=== PATIENT | male | born 1975 | race Caucasian/White ===

== ENCOUNTER 2017-11-11 20:18 | Emergency (ER) | payer SELFPAY | END 2017-11-11 20:47 | disposition home or self-care (01) | LOC: MADERS 20:18 | DX: M75.92 Shoulder lesion, unspecified, left shoulder (principal); G43.909 Migraine, unspecified, not intractable, without status migrainosus; F17.220 Nicotine dependence, chewing tobacco, uncomplicated | CPT/HCPCS: 99283 ==

== ENCOUNTER 2018-07-26 19:26 | Emergency (ER) | payer SELFPAY ==
[~2018-07-26 19:26] MED LIST: Sodium Chloride Irrig Solution 250 ML BOT ONE
[2018-07-26] MEDS ORDERED: Lidocaine 1% w/Epinephrine 1:100K 30 ML VIAL ONE (20:04)
[2018-07-26] MEDS ORDERED: Bacitracin Zinc 1 Packet ONE (20:35)
== END 2018-07-26 20:42 | disposition home or self-care (01) ==
LOC: MADERS 19:26
DX: L02.414 Cutaneous abscess of left upper limb (principal); G43.909 Migraine, unspecified, not intractable, without status migrainosus; F17.220 Nicotine dependence, chewing tobacco, uncomplicated
CPT/HCPCS: 10061; J2001

== ENCOUNTER 2019-01-25 19:01 | Emergency (ER) | payer SELFPAY ==
[2019-01-25] MEDS ORDERED: HYDROcodone/Acetaminophen 5/325 mg Tablet ONE (19:48)
[2019-01-25] MEDS ORDERED: predniSONE 20 MG TAB ONE (19:49)
== END 2019-01-25 19:55 | disposition home or self-care (01) ==
LOC: MADERS 19:01
DX: M54.5 Low back pain (principal); G43.909 Migraine, unspecified, not intractable, without status migrainosus
CPT/HCPCS: 99282; J7512; J7620

== ENCOUNTER 2019-05-26 17:17 | Emergency (ER) | payer SELFPAY | END 2019-05-26 18:06 | disposition home or self-care (01) | LOC: MADERS 17:17 | DX: S51.812A Laceration without foreign body of left forearm, initial encounter (principal); G43.909 Migraine, unspecified, not intractable, without status migrainosus; F17.220 Nicotine dependence, chewing tobacco, uncomplicated; W26.0XXA Contact with knife, initial encounter | CPT/HCPCS: 12001 ==

== ENCOUNTER 2019-06-04 22:33 | Emergency (ER) | payer SELFPAY ==
[2019-06-04] MEDS ORDERED: Clindamycin 150 MG CAP ONE (22:48)
[2019-06-04] MEDS ORDERED: Bacitracin 1 PK ONE (22:49)
== END 2019-06-04 23:03 | disposition home or self-care (01) ==
LOC: MADERS 22:33
DX: L03.114 Cellulitis of left upper limb (principal); G43.909 Migraine, unspecified, not intractable, without status migrainosus; F17.220 Nicotine dependence, chewing tobacco, uncomplicated
CPT/HCPCS: 99283

== ENCOUNTER 2019-11-17 14:49 | Emergency (ER) | payer SELFPAY ==
[2019-11-17] MEDS ORDERED: Cephalexin 500 MG CAP ONE (16:06)
[2019-11-17] MEDS ORDERED: Acetaminophen/Codeine 30-300mg Tablet ONE (16:06)
== END 2019-11-17 16:23 | disposition home or self-care (01) ==
LOC: MADERS 14:49
DX: S61.532A Puncture wound without foreign body of left wrist, initial encounter (principal); S61.512A Laceration without foreign body of left wrist, initial encounter; G43.909 Migraine, unspecified, not intractable, without status migrainosus; F17.220 Nicotine dependence, chewing tobacco, uncomplicated; W26.0XXA Contact with knife, initial encounter; Y92.009 Unspecified place in unspecified non-institutional (private) residence as the place of occurrence of the external cause
CPT/HCPCS: 99283

== ENCOUNTER 2020-01-14 17:53 | Emergency (ER) | payer SELFPAY ==
[2020-01-14] MEDS ORDERED: diphenhydrAMINE 50 MG/ML VIAL ONE (18:25)
[2020-01-14] MEDS ORDERED: Sodium Chloride 0.9% 1,000 ML ONE (18:25)
[2020-01-14] MEDS ORDERED: Ketorolac Tromethamine 30 MG/ML VIAL ONE (18:25)
[2020-01-14] MEDS ORDERED: Prochlorperazine 10 MG/2 ML VIAL ONE (18:25)
== END 2020-01-14 20:35 | disposition home or self-care (01) ==
LOC: MADERS 17:53
DX: G43.909 Migraine, unspecified, not intractable, without status migrainosus (principal); F17.220 Nicotine dependence, chewing tobacco, uncomplicated
CPT/HCPCS: 96365; 96366; 96375; J0780; J1200; J1885; J7050

== ENCOUNTER 2024-03-14 19:07 | Emergency (ER) | payer SELFPAY ==
[~2024-03-14 19:07] MED LIST changes: +Iopamidol 370 76% 100 ML VIAL ONE; -Sodium Chloride Irrig Solution 250 ML BOT ONE
[2024-03-14] MEDS ORDERED: Ketorolac Tromethamine 30 MG (1 mL) VIAL ONE (20:06)
[2024-03-14 20:13] LABS: #Basophils 0.1 thou/uL (0.0-0.2); #Eosinphils 0.1 thou/uL (0.0-0.7); #Lymphocytes 1.8 thou/uL (1.20-3.40); #Monocytes 0.5 thou/uL (0.11-0.59); %Basophils 1.2 % (0.0-1.0); %Eosinophils 2.1 % (0.0-10.0); %Lymphocytes 27.6 % (21.0-51.0); %Neutrophils 62.2 % (42.0-75.0); Hematocrit 34.1 % (42.0-52.0); Hemoglobin 11.7 g/dL (14.0-18.0); Mean Corpuscular HGB CONC 34.2 g/dL (32.0-36.0); Mean Corpuscular Hemoglobin 31.7 pg (27.0-31.0); Mean Corpuscular Volume 92.6 fl (78.0-98.0); Mean Platelet Volume 7.8 fL (7.4-10.4); Platelet Count 282 10x3/uL (130-400); RBC Distribution Width 10.8 % (11.5-14.5); Red Blood Cell (RBC) Count 3.68 mill/uL (4.70-6.10); White Blood Cell (WBC) Count 6.5 10x3/uL (4.8-10.8)
[2024-03-14 20:30] LABS: ALT (SGPT) 12 U/L (8-55); AST (SGOT) 15 U/L (5-34); Albumin 4.1 g/dL (3.5-5.0); Alkaline Phosphatase 52 U/L (40-110); Anion Gap 13 mmol/L (10-20); BUN (Urea Nitrogen) 14 mg/dL (8.9-20.6); Bilirubin, Total 0.4 mg/dL (0.2-1.2); Calc. Creatinine Clearance 0 mL/min (70-130); Calcium 8.8 mg/dL (7.8-10.44); Carbon Dioxide 25 mmol/L (22-29); Chloride 108 mmol/L (98-107); Estimated GFR 72; Globulin 2.4 g/dL (2.4-3.5); Glucose 102 mg/dL (70-105); Potassium 3.9 mmol/L (3.5-5.1); Protein, Total 6.5 g/dL (6.0-8.3); Sodium 142 mmol/L (136-145)
== END 2024-03-14 21:12 | disposition home or self-care (01) ==
LOC: MADERS 19:07
DX: N20.0 Calculus of kidney (principal); F17.220 Nicotine dependence, chewing tobacco, uncomplicated
CPT/HCPCS: 74177; 80053; 85025; 96374; J1885; Q9967